=== PATIENT | male | born 2000 | race Caucasian/White ===

== ENCOUNTER 2024-02-16 23:50 | Emergency (ER) | payer OTHER, SELFPAY ==
[2024-02-16 23:59] VITALS: BP 116/75; PULSE 95; RESP 18; TEMP 37.2; O2SAT 95; BMI 19.6
--- NOTE | 2024-02-17 01:09 | ED_ITS ---
HPI - Wound/Laceration General Date Seen: 02/17/24 Chief Complaint: Laceration/Wound Stated Complaint: R index finger lac Time Seen by Provider: 02/17/24 00:29 Source: patient Mode of arrival: ambulatory Limitations: no limitations History of Present Illness HPI narrative: Patient is a 23-year-old male who was doing dishes at [employer] 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 Bleeding was controlled with pressure and a rubber band tourniquet. He presents for evaluation for suturing. Last tetanus was in 2010. Related Data Home Medications ?Medication ?Instructions ?Recorded ?Confirmed No Known Home Medications 02/17/24 02/17/24 Allergies Allergy/AdvReac Type Severity Reaction Status Date / Time penicillin V Allergy Severe Hives Verified 02/17/24 00:01 Review of Systems Narrative: Review of systems is outlined above otherwise noted to be negative. PFSH PFSH Surgical History (Updated 06/09/23 @ 14:10 by Angel Mcconnell) No pertinent past surgical history ?Z78.9 - Other specified health status (ICD-10) Family History (Updated 06/09/23 @ 14:12 by Angel Mcconnell) Paternal Grandfather Cancer Maternal Grandfather Cancer Father High blood pressure Social History (Updated 06/09/23 @ 14:12 by Angel Mcconnell) Narrative: does not drink alcohol does not use illicit drugs nonsmoker Non-prescribed substance use: denies use Exam Narrative: Exam Narrative: Vitals noted: Examination is limited to the right upper extremity. He has a 2 cm laceration involving the proximal phalanx of the right index finger. This is clean laceration that does not involve flexor or extensor tendon. He has full range of motion of the PIP joint. Good distal CMS. Const: Vital Signs, click to edit/add: Vital Signs - 24 hr 02/16/24 23:59 Temperature 98.9 F Pulse Rate [Right Pulse Oximeter] 95 Respiratory Rate 18 Blood Pressure [Ri ght Upper Arm] 116/75 Pulse Oximetry 95 Oxygen Delivery Me thod Room Air Course Course ED Course: Patient is seen and examined. Tdap is given. The wound is prepped and draped in sterile fashion, scrubbed with a Betadine solution, and closed with three simple interrupted sutures of 5.0 Ethilon. Good wound edge approximation and hemostasis were achieved. Estimated blood loss was less than 5 mL. He tolerated this well. Vital Signs Vital signs: Initial Vital Signs Temperature 98.9 F 02/16/24 23:59 Temperature Source Temporal Artery Scan 02/16/24 23:59 Pulse Rate 95 02/16/24 23:59 Pulse Rhythm Regular 02/16/24 23:59 Respiratory Rate 18 02/16/24 23:59 Blood Pressure 116/75 02/16/24 23:59 Blood Pressure Mean 88 02/16/24 23:59 Blood Pressure Position Sitting 02/16/24 23:59 Pulse Oximetry 95 02/16/24 23:59 Oxygen Delivery Method Room Air 02/16/24 23:59 Vital Signs Temperature 98.9 F 02/16/24 23:59 Pulse Rate 95 02/16/24 23:59 Respiratory Rate 18 02/16/24 23:59 Blood Pressure 116/75 02/16/24 23:59 Pulse Oximetry 95 02/16/24 23:59 Oxygen Delivery Method Room Air 02/16/24 23:59 Temperature 98.9 F 02/16/24 23:59 Pulse Rate 95 02/16/24 23:59 Respiratory Rate 18 02/16/24 23:59 Blood Pressure 116/75 02/16/24 23:59 Pulse Oximetry 95 02/16/24 23:59 Oxygen Delivery Method Room Air 02/16/24 23:59 Discharge Plan Discharge Clinical Impression: Finger laceration Patient Disposition: Home, Self-Care Condition: Improved Additional Instructions: Keep wound clean, dry, and protected. Sutures out in 10 days. Watch for signs of infection. Prescriptions: No Action No Known Home Medications Follow Up/Referrals: Provider,Not a Local [Primary Care Provider] - Stand Alone Forms: MyHealth Info Instructions
[2024-02-17] MEDS: TETANUS/DIPHTH/PERTUSSIS 0.5 ML SYRINGE IM (01:13)
[2024-02-17] MEDS: LIDOCAINE 1 % PF 30 ML 5 ML INJECTION (01:49)
== END 2024-02-17 01:30 | disposition home or self-care (01) ==
PROVIDERS: Emergency Provider Family Medicine
DX: S61.210A Laceration without foreign body of right index finger without damage to nail, initial encounter (principal); W26.9XXA Contact with unspecified sharp object(s), initial encounter
CPT/HCPCS: 12001; 90471; 90715; 99282; 99283; J2001

== ENCOUNTER 2024-04-09 10:14 | Outpatient (CLI) | payer OTHER, SELFPAY | END 2024-04-09 10:15 | disposition home or self-care (01) | PROVIDERS: Visit Provider Physician Assistant Medical | DX: Z13.220 Encounter for screening for lipoid disorders (principal); Z13.228 Encounter for screening for other metabolic disorders; Z13.29 Encounter for screening for other suspected endocrine disorder | CPT/HCPCS: 80053; 80061; 84443 ==